=== PATIENT | male | born 1960 ===

== ENCOUNTER 2016-07-18 18:00 | Emergency (ER) | payer OTHER, BC ==
[2016-07-18] MEDS ORDERED: Lidocaine 1% 50 ML MDV ONE (18:17)
[2016-07-18 18:26] VITALS: BP 135/91
[2016-07-18] MEDS ORDERED: Lidocaine 1% 50 ML MDV INJECT ONE (18:30)
--- NOTE | 2016-07-18 18:54 | EDM.PDOC ---
<Sharlene Queen M - Last Filed: 07/18/16 19:38> ED HPI Skin/Rash - General Chief Complaint: Laceration Stated Complaint: LT THUMB LAC Time Seen by Provider: 07/18/16 18:15 Source: Reports: Patient History Limitations: Reports: No limitations - History of Present Illness INITIAL COMMENTS - FREE TEXT/NARRATIVE: Marlon is a 55yo male presents ambulatory to ER after getting his left distal thumb tip smashed between a hitch and charcoal unloader (300lb of pressure by patient report) just prior to arrival. The tip of his thumb is partially amputated. No other associated injuries. Last tetanus vaccine was one month ago. Otherwise healthy, no DM history. Symptom Onset Date: 07/18/16 Location, Skin: Reports: upper extremity, left Quality: Reports: Sharp, Throbbing Severity: severe Known Identified Source: yes Place of Occurrence: home - Related Data Allergies Allergy/AdvReac Type Severity Reaction Status Date / Time No Known Allergies Allergy Verified 07/18/16 18:26 Home Meds: Ambulatory Orders Medication Instructions Recorded Confirmed Aspirin 81 mg PO DAILY 07/18/16 07/18/16 Cephalexin 500 mg PO Q6HR #30 capsule 07/18/16 Hydrocodone/Acetaminophen [Haiku 1 each PO Q6HR PRN #14 tablet 07/18/16 5-325 Tablet] ED ROS GENERAL - Review of Systems Review Of Systems: See Below Constitutional: Reports: no symptoms HEENT: Reports: No symptoms Respiratory: Reports: No Symptoms Cardiovascular: Reports: No symptoms Endocrine: Reports: no symptoms GI/Abdominal: Reports: No symptoms : Reports: no symptoms Musculoskeletal: Reports: no symptoms Skin: Reports: other (see HPI; lt distal thumb tip amputation) Neurological: Reports: No Symptoms Psychiatric: Reports: No symptoms ED EXAM, SKIN/RASH Exam: See Below Exam Limited By: No limitations General Appearance: alert, WD/WN, no apparent distress Eye Exam: bilateral eye: EOMI, PERRL Ears: normal external exam, hearing grossly normal Nose: normal inspection Throat/Mouth: Normal inspection, Normal lips, Normal teeth Head: atraumatic, normocephalic Neck: normal inspection Respiratory/Chest: no respiratory distress, lungs clear, normal breath sounds Cardiovascular: regular rate, rhythm Peripheral Pulses: 1+: dorsalis pedis (L), dorsalis pedis (R) (Male) Exam: Deferred Rectal (Males) Exam: Deferred Extremities: other (left thumb; distal tip is with partial amputation; nail bed is completely intact and unharmed; palmar surface of tip is partially avulsed/ amputated. He has partial sensation to the amputated tip, normal sensation to distal thumb that is not involved with the ambupation. ) Neurological: alert, oriented, CN II-XII intact, normal cognition, normal gait Course - Vital Signs Last Recorded V/S: Last Vital Signs Temp 97.5 F 07/18/16 18:07 Pulse 75 07/18/16 21:33 Resp 18 07/18/16 18:07 BP 135/91 H 07/18/16 18:07 Pulse Ox 98 07/18/16 21:33 - Orders/Labs/Meds Orders: Active Orders 24 hr Category Date Time Status Fingers Thumb Lt FA [CR] Stat Exams 07/18/16 18:48 Taken Meds: Medications Discontinued Medications Generic Name Dose Route Start Last Admin Trade Name Easton PRN Reason Stop Dose Admin Cefazolin Sodium/Dextrose 1 gm 50 mls @ 100 mls/hr 07/18/16 19:31 07/18/16 19 :43 / Premix IV 07/18/16 20:00 100 mls/hr ONETIME ONE Administration Lidocaine HCl Confirm 07/18/16 18:17 Xylocaine 1% Administered 07/18/16 18:18 Dose 50 ml .ROUTE .STK-MED ONE Lidocaine HCl 50 ml 07/18/16 18:30 07/18/16 20:10 Xylocaine 1% INJECT 07/18/16 18:31 50 ml ONETIME ONE Administration - Re-Assessments/Exams Free Text/Narrative Re-Assessment/Exam: 07/18/16 19:00 digital block was done to left thumb using 1% lidocaine 10cc. Tolerated well. Xray of thumb ordered. Free Text/Narrative Re-Assessment/Exam: 07/18/16 19:[address] Chester. He will see and evaluate patient also, repair partial amputation. Departure - Departure Disposition: Home, Self-Care 01 Clinical Impression: Laceration of thumb Qualifiers: Encounter type: initial encounter Laterality: left Qualified Code(s): S61.012A - Laceration without foreign body of left thumb without damage to nail, initial encounter Prescriptions: Cephalexin 500 mg PO Q6HR #30 capsule Hydrocodone/Acetaminophen [Haiku 5-325 Tablet] 1 each PO Q6HR PRN #14 tablet PRN Reason: Pain Instructions: Laceration Care, Adult, [id number] Referrals: Srinivas Webb DO [Primary Care Provider] - Forms: ED Department Discharge Additional Instructions: Laceration care instructions, keep pressure dressing on the thumb until Wednesday, I recommend [facility]up at the [facility] Wednesday for wound recheck, dressing change further guidance with this injury as needed. Cephalexin antibiotic 500 mg 4 times daily for one week, keep as dry and clean as possible, light-duty work will be acceptable as long as you are not getting the thumb dirty or doing actual work with the left thumb itself. Tylenol 2-3 times daily or if you do need hydrocodone for throbbing discomfort you may take that at night or when not working as needed, do not drive or work within 8 hours of taking hydrocodone as that is a narcotic pain medicine. Have rechecked any sign of infection. Return to ED as needed. <Eric Chester - Last Filed: 07/18/16 22:28> ED SKIN PROCEDURES - Laceration/Wound Repair Left Finger Lac/wound length in cm: 9 Appearance: irregular (Laceration is extremely deep, irregular, circumferential with not a lot of tissue continuing to attach the distal pad to the thumb) Distal NVT: other (Sensation was present but somewhat diminished to touch area of injury distal thumb) Anesthetic type: local Local anesthesia - Lidocaine (Xylocaine): 1% plain Skin prep: saline Exploration/Debridement/Repair: explored to base, no foreign material found, multiple flaps aligned Suture size: 3-0 # of sutures: 20 Suture type: nylon Course - Re-Assessments/Exams Free Text/Narrative Re-Assessment/Exam: 07/18/16 20:03 have assumed care for Mr. Palomino. I agree with history and exam as documented by Farheen Queen. The x-rays of his thumb are good with no visible fracture. Ancef 1 g IV has been ordered. I did discuss this injury with , our Orthopedist department operations manager who does suggest even though there is not a lot of soft tissue holding the distal pad in place to reattach that as planned and that these typically will do quite well. Digital Block already placed by Farheen Overton. 07/18/16 22:25 Pt tolerated the suturing very well. He and his manager drug safety have been advised that this is a very serious injury, high risk for infection. Good wound care and being careful to keep this clean, not traumatize the thumb is going to be very important. They have light duty work available for him where he can work mostly with his R hand. Discharge instr. as documented. Departure - Departure Time of Disposition: 21:10 Condition: fair
[2016-07-18] MEDS ORDERED: ceFAZolin 1 GM in Premix Bag 1 BAG IV ONE (19:31)
--- NOTE | 2016-07-20 06:52 | CR ---
Left thumb: Three views of the left thumb were obtained. Comparison: No previous study. Soft tissue injury identified distally. Soft tissue swelling is noted. Minimal degenerative change is noted within the IP joint. No fracture or other bony abnormality is seen. Impression: 1. Distal soft tissue injury and soft tissue swelling. 2. Other incidental findings. No acute bony abnormality is seen. Diagnostic code #2
== END 2016-07-18 21:33 | disposition home or self-care (01) ==
LOC: JD.ED 18:00
DX: S61.012A Laceration without foreign body of left thumb without damage to nail, initial encounter (principal); W23.0XXA Caught, crushed, jammed, or pinched between moving objects, initial encounter; Y92.69 Other specified industrial and construction area as the place of occurrence of the external cause; Y99.0 Civilian activity done for income or pay; Z79.82 Long term (current) use of aspirin
CPT/HCPCS: 12004; 73140; 96374; 99283; J0690; 99284-25